=== PATIENT | male | born 1970 | race Caucasian/White ===

== ENCOUNTER → 2016-12-15 | Outpatient (CLI) | payer OTHER | END | disposition home or self-care (01) | LOC: CFH 13:54 | PROVIDERS: ATTEND Psychiatry & Neurology Neurology | DX: G44.82 Headache associated with sexual activity (principal); E11.9 Type 2 diabetes mellitus without complications | CPT/HCPCS: 70544 ==

== ENCOUNTER 2019-02-08 10:17 | Outpatient (CLI) | payer OTHER ==
[2019-02-08] MEDS ORDERED: SEMA1PEN INJ (10:45)
[2019-02-08] MEDS ORDERED: PANT40TA5 PO (10:45)
[2019-02-08] MEDS ORDERED: LEVO50TA5 PO (10:45)
[2019-02-08] MEDS ORDERED: EMPA1TAB15 PO (10:45)
[2019-02-08] MEDS ORDERED: MONT10TA6 PO (10:45)
[2019-02-08] MEDS ORDERED: LITH300C PO (10:45)
[2019-02-08] MEDS ORDERED: CLON1TAB11 PO (10:45)
== END 2019-02-08 23:59 | disposition home or self-care (01) ==
LOC: STAR 10:17
PROVIDERS: ATTEND Orthopaedic Surgery
DX: Z01.818 Encounter for other preprocedural examination (principal); S43.431A Superior glenoid labrum lesion of right shoulder, initial encounter; M75.41 Impingement syndrome of right shoulder; X58.XXXA Exposure to other specified factors, initial encounter; Y93.89 Activity, other specified; Y92.89 Other specified places as the place of occurrence of the external cause; Y99.8 Other external cause status
CPT/HCPCS: 93005

== ENCOUNTER 2019-02-15 05:33 | Day surgery (SDC) | payer OTHER ==
[~2019-02-15] VITALS: Ht 182.9 cm; Wt 119.6 kg
[2019-02-15 06:02] VITALS: BP 115/90
== END 2019-02-15 13:05 | disposition home or self-care (01) ==
LOC: OUT 05:33
PROVIDERS: ATTEND Orthopaedic Surgery
DX: S43.431A Superior glenoid labrum lesion of right shoulder, initial encounter (principal); M75.41 Impingement syndrome of right shoulder; M75.01 Adhesive capsulitis of right shoulder; M19.011 Primary osteoarthritis, right shoulder; M25.711 Osteophyte, right shoulder; I10 Essential (primary) hypertension; E11.9 Type 2 diabetes mellitus without complications; G47.33 Obstructive sleep apnea (adult) (pediatric); E66.9 Obesity, unspecified; K21.9 Gastro-esophageal reflux disease without esophagitis; Z79.84 Long term (current) use of oral hypoglycemic drugs; Z79.890 Hormone replacement therapy; Z79.899 Other long term (current) drug therapy; Z82.49 Family history of ischemic heart disease and other diseases of the circulatory system; X58.XXXA Exposure to other specified factors, initial encounter; Y93.89 Activity, other specified; Y92.89 Other specified places as the place of occurrence of the external cause; Y99.8 Other external cause status
CPT/HCPCS: 29823; 29824; 29826; 64415; 82962; J0171; J0330; J0690; J1100; J2250; J2405; J2704; J3010; J3490; J7120